=== PATIENT | female | born 1980 | race Caucasian/White ===

== ENCOUNTER → 2016-10-18 | Outpatient (CLI) | payer OTHER | LOC: FIMAGING 10:35 | PROVIDERS: ATTEND Advanced Practice Midwife | DX: O09.523 Supervision of elderly multigravida, third trimester (principal); Z3A.30 30 weeks gestation of pregnancy ==

== ENCOUNTER → 2016-11-14 | Outpatient (CLI) | payer OTHER | LOC: FIMAGING 08:44 | PROVIDERS: ATTEND Advanced Practice Midwife | DX: O09.523 Supervision of elderly multigravida, third trimester (principal); Z3A.34 34 weeks gestation of pregnancy ==

== ENCOUNTER 2016-11-15 19:33 | Observation (INO) | payer OTHER | END 2016-11-15 22:10 | disposition home or self-care (01) | LOC: FLD 19:33 | PROVIDERS: ADMIT Obstetrics & Gynecology; ATTEND Obstetrics & Gynecology | DX: O26.893 Other specified pregnancy related conditions, third trimester (principal); Z04.3 Encounter for examination and observation following other accident | CPT/HCPCS: G0378 ×2 ==

== ENCOUNTER 2016-12-12 17:50 | Inpatient (IN) | payer OTHER ==
[2016-12-12] MEDS ORDERED: IBUPROFEN 600 MG TAB PO ONE (18:20)
[2016-12-12] MEDS ORDERED: LIDOCAINE 1% 300 MG/30 ML SDV ONE (18:22)
[2016-12-12] MEDS ORDERED: LIDOCAINE 1% 300 MG/30 ML SDV IF ONE (18:30)
[2016-12-12] MEDS ORDERED: SIMETHICONE 80 MG TAB CHEW PO PRN (19:12)
[2016-12-12] MEDS ORDERED: ACETAMINOPHEN 325 MG TAB PO PRN (19:12)
[2016-12-12] MEDS ORDERED: HYDROCORTISONE 0.5% CREAM TP PRN (19:12)
--- NOTE | 2016-12-12 19:17 | OBDEL ---
Info Type: Vaginal GBS+: Yes (patient was an unintended home no antibiotics given) Antibiotic Used for + GBS: Ampicillin Number of Antibiotic Doses Given: 0 Indications for Delivery: Spontaneous Labor Vaginal Delivery - Labor and Delivery Onset of Contractions Date: 12/12/16 Onset of Contractions Time: 15:30 Onset of Contractions Type: Spontaneous Rupture of Membranes Date: 12/12/16 Rupture of Membranes Time: 16:40 Rupture of Membranes Type: Spontaneous Amniotic Fluid Color: Meconium Stained Dilation Complete Date: 12/12/16 Dilation Complete Time: 16:40 Placenta Delivery Date: 12/12/16 Placenta Delivery Time: 18:50 Total Hours of Labor: 3 Laceration: 2nd Degree Repair: 2-0, Vicryl Vaginal Sponge Count Correct: Yes Vaginal Needle Count Correct: Yes Vaginal Sweep Performed: Yes EBL: 100 Delivery Events: Other (Specify) (unintended home , contractions less than 1 hour, SROM at delivery, light meconium stained, loose nuchal cord reduced by the FOB) - Medications Labor Augmentation/Induction Methods Used: None Data Berumen Delivery Date: 12/12/16 Delivery Time: 16:40 JENIFER: 12/21/16 Gestational Age: 38 week(s) and 5 day(s) Sex of Infant: Male ICD10 Worksheet Patient Problems: Problems Problem Status Onset Vaginal delivery Acute
--- NOTE | 2016-12-12 20:08 | GHP ---
[f rep st] HISTORY AND PHYSICAL DATE OF ADMISSION: 12/12/2016 ADMITTING DIAGNOSIS: Unintended home at 38 and 5/7 weeks' gestation. HISTORY OF PRESENT ILLNESS: The patient is a 36-year-old, 2, para 1-0-0-1, with a last mens trual period of 03/15/2016, and EDC of 12/21/2016, which was confirmed by a 7-week ultrasound. She has had good care at [facility] since registration at 7 weeks' gestation. Her pr enatal risk factors include advanced maternal age. She has had negative Verifi, negative AFP, and n ormal ultrasounds in this , history of hypothyroidism which she is treated, and depression, and anxiety during this . She reports beginning feeling contractions this afternoon, cram ping and irregular contractions beginning approximately at 1:30 p.m. this afternoon, becoming intens e around 3:30 p.m. She called the office at 4:20 p.m. reporting contractions that were getting inte nse, 2-4 minutes apart, and she was instructed to come to the hospital. She delivered the baby at [facility]. Her assisted with a loose nuchal cord and the shoulders. She reported that the baby d elivered in the amniotic sac and that it ruptured at time of delivery for light stained meconium flu id. The baby was vigorous, immediately began crying. They clamped and cut the cord and she present ed with the placenta intact. I assessed the mom and baby, and mom's bleeding was minimal. With gentle traction, her placenta del ivered intact. Her baby was vigorously nursing. She had a second-degree perineal laceration, that I also repaired, and that was performed without difficulty. I called her total estimated blood loss 100 cc and she is doing well . PAST OBSTETRICAL HISTORY: In June 2014, she had a viable male, 8 pounds 1 ounce, vaginal deliver y without complication, and this is her 2nd . PAST GYNECOLOGICAL HISTORY: She had a normal menstrual triad, a normal last menstrual. No history of any abnormal Paps or any SCRAP KETTLE TENDER complications. PAST MEDICAL HISTORY: Significant for situational depression and anxiety. She moved from [place] d ing this and does not have family or a lot of acquaintances here. History of hypothyroi dism. ALLERGIES: Latex. She has a sensitivity to codeine, it causes nausea and vomiting. MEDICATIONS: Include vitamins, vitamin D, vitamin B complex, probiotics, and omega-3. LABORATORY DATA: She is O positive, antibody negative. RPR nonreactive. Rubella immune. Hepatiti s negative. HIV negative. Cystic fibrosis, SMA, and fragile X negative. Pap normal. Gonorrhea an d chlamydia negative. Verifi negative. 1-hour GTT 118. GBS is positive. SOCIAL HISTORY: She is . She lives with her and her son. 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 She denies tobacco, alcohol, and drug u se. FAMILY HISTORY: Paternal grandfather of an NH in his 60s. Maternal grandfather had leukemia. Mother has migraines. Paternal grandmother had Alzheimer disease. REVIEW OF SYSTEMS: Significant for cramping and minimal bleeding. No other significant review of systems. A 10-point systems was performed. PHYSICAL EXAMINATION: VITAL SIGNS: She is afebrile. Vital signs are stable. LUNGS: Clear to aus cultation bilaterally. HEART: Regular rate and rhythm. No murmur. ABDOMEN: Uterine fundus is fi rm at the umbilicus. She has minimal bleeding with fundal pressure. PERINAL: She had a second-deg ree perineal laceration, which I repaired and otherwise is fine. ASSESSMENT AND PLAN: A 36-year-old, 2, para 1-0-0-1, who is , status post an unin tended home . She is GBS positive and the baby did not receive antibiotics; however, the membr anes ruptured right at the time of delivery. Patient will be admitted for a minimal of 23 hours obs ervation with her baby. Baby needs to be observed for approximately 24 hours. The patient is doing well, does not require Pitocin at this time. We will watch closely. /[id number]/MODL
[2016-12-13] MEDS: IBUPROFEN 600 MG TAB PO PRN ×4 (00:22→19:32)
[2016-12-13] MEDS: HYDROCODONE/APAP 5/325 TAB PO PRN ×3 (00:22→22:30)
[2016-12-13 00:24] VITALS: O2SAT 96
[2016-12-13] MEDS: LEVOTHYROXINE 50 MCG TAB PO SCH (06:31)
[2016-12-13] MEDS: DOCUSATE SODIUM 100 MG CAP PO PRN ×2 (13:35→19:32)
--- NOTE | 2016-12-13 18:52 | SOAPPROG ---
SOAP Progress Note Assessment/Plan: Assessment: ppd# 1 s/p at home after precipitous labor breast feeding mood stable Plan: routine post care 12/13/16 18:51 Subjective: patient is doing well. breast feeding is going better than with g1. pain controlled. normal lochia. occasionaly taking norco for cramping. denies headache and changes in vision. Objective: Vital Signs Temp Pulse Resp BP Pulse Ox 36.7 C 90 14 107/70 96 12/13/16 08:00 12/13/16 08:00 12/13/16 08:00 12/13/16 08:00 12/13/16 08:00 Laboratory Results 12/13/16 04:30 12/12/16 12/13/16 12/14/16 05:59 05:59 05:59 Output Total 100 Balance -100 Physical Exam - Physical Exam General Appearance: WD/WN Respiratory: chest non-tender, lungs clear, normal breath sounds Cardiac/Chest: normal peripheral pulses, regular rate, rhythm Abdomen: normal bowel sounds, non-tender, soft, other (fundus firm and non tender) Skin: normal color, warm/dry Extremities: normal range of motion, non-tender, normal inspection, normal capillary refill Neuro/Psych: no motor/sensory deficits, alert, normal mood/affect, oriented x 3 ICD10 Worksheet Patient Problems: Problems Problem Status Onset Vaginal delivery Acute
[2016-12-13] MEDS ORDERED: EPSOM SALT 454 GM TP ONE (20:12)
[2016-12-14] MEDS: IBUPROFEN 600 MG TAB PO PRN ×2 (01:43→09:29)
[2016-12-14] MEDS: LEVOTHYROXINE 50 MCG TAB PO SCH (06:48)
--- NOTE | 2016-12-14 07:35 | OBPP ---
Progress Note Assessment/Plan: Assessment: 1) s/p precipitous PPD # 2 - pt is stable 2) Anemia - pt is asymptomatic Plan: Plan for d/c home today Instructions reviewed with pt No Rx given Cont PNV, iron and colace Pelvic rest RTC in 4 and 6 weeks 12/14/16 07:32 Subjective: Pt seen and examined. Doing well, no complaints. Some cramping, relief with Motrin. Moderate lochia. Voiding without difficulty. Small BM x 1. BF without difficulty. Objective: 12/13/16 04:30 Temp Pulse Resp BP Pulse Ox 36.4 C 96 14 109/70 96 12/13/16 20:00 12/13/16 20:00 12/13/16 08:00 12/13/16 20:00 12/13/16 08:00 Uterine Position/Fundal Height: Umbilicus -2 Uterine Tone: Firm Physical Exam - Physical Exam General Appearance: WD/WN, alert, no apparent distress Respiratory: lungs clear, normal breath sounds Abdomen: normal bowel sounds, non-tender, soft, flatus (+) Extremities: non-tender, normal inspection Neuro/Psych: alert, normal mood/affect, oriented x 3
--- NOTE | 2016-12-14 07:40 | OBGCSDC ---
General Delivery Information - General Info : 2 Para: 2 Cathead Operator: Jennifer Price Admission Date: 12/12/16 Labs: Hct 31.9 % (38.0-47.0) L 12/13/16 04:30 Vaginal - Diagnosis Labor: Spontaneous Rupture of Membranes Type: Spontaneous Amniotic Fluid Color: Meconium Stained Laceration: 2nd Degree Repair: 2-0, Vicryl Delivery Events: Other (Specify) (unintended home , contractions less than 1 hour, SROM at delivery, light meconium stained, loose nuchal cord reduced by the FOB) - Operations/Procedures L&D Analgesia/Anesthesia Type: None - Hospital Course : Uncomplicated. Minimal cramping, relief with Motrin. Moderate lochia. Small BM x 1. BF without difficulty. - Delivery L&D Analgesia/Anesthesia Type: None Data Berumen Delivery Date: 12/12/16 Delivery Time: 14:40 JENIFER: 12/21/16 Gestational Age: 39 week(s) and 0 day(s) Sex of : Male Weight (gm): 3476 g Discharge Information - Discharge Information Discharge Medications: Iron, Ibuprofen, Vitamins Condition: Good Instruction/Follow Up: Six Weeks (4 weeks for mood check-pt is seeing a Therapist as well) Discharge Physician/CNM: Cassandra Cavanaugh
[2016-12-14] MEDS: DOCUSATE SODIUM 100 MG CAP PO PRN (09:29)
[2016-12-14 11:33] VITALS: BP 102/61; PULSE 94; RESP 16; TEMP 97.7
== END 2016-12-14 13:00 | disposition home or self-care (01) | DRG 775 ==
LOC: FLD 17:50 → FOB 21:37
PROVIDERS: ADMIT Obstetrics & Gynecology; ATTEND Obstetrics & Gynecology
PROC: 0KQM0ZZ Repair Perineum Muscle, Open Approach (ICD-10-PCS; principal; 2016-12-12)
DX: Z39.0 Encounter for care and examination of mother immediately after delivery (principal); Z37.0 Single live birth; O70.1 Second degree perineal laceration during delivery; O99.825 Streptococcus B carrier state complicating the puerperium; Z3A.38 38 weeks gestation of pregnancy

== ENCOUNTER → 2017-09-19 | Outpatient (CLI) | payer OTHER | LOC: FIMAGING 14:10 | PROVIDERS: ATTEND Obstetrics & Gynecology | DX: N64.59 Other signs and symptoms in breast (principal); N63.11 Unspecified lump in the right breast, upper outer quadrant ==

== ENCOUNTER → 2017-11-28 | Outpatient (CLI) | payer OTHER | LOC: FIMAGING 08:51 | PROVIDERS: ATTEND Surgery | DX: N64.4 Mastodynia (principal) ==

== ENCOUNTER → 2018-11-20 | Outpatient (CLI) | payer BC, OTHER | LOC: FIMAGING 09:26 | PROVIDERS: ATTEND Hospitalist | DX: O09.512 Supervision of elderly primigravida, second trimester (principal); Z3A.20 20 weeks gestation of pregnancy ==

== ENCOUNTER → 2018-12-17 | Outpatient (CLI) | payer BC | LOC: FIMAGING 08:28 ==